=== PATIENT | female | born 1975 | race Caucasian/White ===

== ENCOUNTER → 2016-12-03 | Outpatient (CLI) | payer BC ==
[~2016-12-03] MED LIST: PRENATAL1 TA1 PO
== END ==
LOC: BHSO 15:22
DX: F33.42 Major depressive disorder, recurrent, in full remission (principal)

== ENCOUNTER → 2017-02-16 | Outpatient (CLI) | payer BC | LOC: MC.RAD 12-25 07:00 | DX: Z12.31 Encounter for screening mammogram for malignant neoplasm of breast (principal) ==

== ENCOUNTER → 2017-11-17 | Outpatient (CLI) | payer BC | LOC: BHSO 09:45 | DX: F41.1 Generalized anxiety disorder (principal) | CPT/HCPCS: G0463 ==

== ENCOUNTER → 2017-12-01 | Outpatient (CLI) | payer BC | LOC: COL.RAD 07:43 | DX: S73.191A Other sprain of right hip, initial encounter (principal); M24.151 Other articular cartilage disorders, right hip; M70.61 Trochanteric bursitis, right hip; R60.0 Localized edema | CPT/HCPCS: A9585; Q9967 ==

== ENCOUNTER → 2018-05-18 | Outpatient (CLI) | payer BC | LOC: BHSO 16:05 | DX: F33.42 Major depressive disorder, recurrent, in full remission (principal) | CPT/HCPCS: G0463 ==

== ENCOUNTER → 2018-11-18 | Outpatient (CLI) | payer BC | LOC: BHSO 16:08 | DX: F33.42 Major depressive disorder, recurrent, in full remission (principal) | CPT/HCPCS: G0463 ==

== ENCOUNTER → 2019-05-19 | Outpatient (CLI) | payer BC | LOC: BHSO 16:13 | DX: F41.1 Generalized anxiety disorder (principal) | CPT/HCPCS: G0463 ==

== ENCOUNTER → 2020-05-10 | Outpatient (CLI) | payer BC | LOC: BHSO 16:14 | DX: F41.1 Generalized anxiety disorder (principal) | CPT/HCPCS: G0463 ==